=== PATIENT | male | born 1945 | race Two or more races ===

== ENCOUNTER 2016-06-20 18:53 | Emergency (ER) | payer MEDICARE, MEDICAID ==
[~2016-06-20] VITALS: Ht 149.9 cm; Wt 47.6 kg
[2016-06-20 19:01] VITALS: BP 142/68
[2016-06-20 19:31] LABS: Basophils # (auto) 0.1 uL; Basophils % (auto) 0.6 % (0.0-2.0); Eosinophils # (auto) 0.2 uL; Eosinophils % (auto) 1.9 % (0.0-7.0); Hematocrit 41.3 % (41.0-53.0); Hemoglobin 13.2 g/dL (13.5-17.5); Lymphocytes # (auto) 1.8 uL; Lymphocytes % (auto) 16.8 % (10.0-50.0); Mean Corpuscular Hemoglobin 28.9 pg (28.0-32.0); Mean Corpuscular Volume 90.6 fL (80.0-100.0); Mean Platelet Volume 9.6 fL (7.4-10.4); Monocytes % (auto) 9.1 % (0.0-12.0); Neutrophils # (auto) 7.6 uL; Neutrophils % (auto) 71.6 % (37.0-80.0); Platelet Count (auto) 391 10^3/uL (140-450); Red Cell Distribution Width 14.5 % (11.6-16.0); White Blood Cell 10.6 10^3/uL (4.4-10.8)
[2016-06-20 19:58] LABS: Albumin 3.7 g/dL (3.4-5.0); BUN/Creatinine Ratio 10.6; Calcium 8.5 mg/dL (8.5-10.1)
[2016-06-20 20:01] LABS: Bilirubin, Total 0.4 mg/dL (0.2-1.0); Total Protein 8.2 g/dL (6.4-8.2)
[2016-06-20 20:19] LABS: Potassium 2.5 mmol/L (3.5-5.1)
[2016-06-20] MEDS ORDERED: POTASSIUM CHL 20 Meq TABLET PO ONE (22:15)
== END 2016-06-21 05:32 | disposition left against medical advice (07) ==
LOC: ER 18:55
DX: R79.9 Abnormal finding of blood chemistry, unspecified (principal); E87.6 Hypokalemia; Z53.21 Procedure and treatment not carried out due to patient leaving prior to being seen by health care provider
CPT/HCPCS: 36415; 80053; 85025; 93005

== ENCOUNTER → 2016-06-27 | Outpatient (CLI) | payer MEDICARE, MEDICAID ==
[2016-06-27 16:00] LABS: Urine RBC None Seen /hpf (0 - 3)
[2016-06-27 16:08] LABS: Urine Bilirubin Negative (Negative); Urine Blood Negative /uL (Negative); Urine Color Yellow (Yellow); Urine Glucose Normal (Normal); Urine Ketone Negative (Negative); Urine Nitrite Negative (Negative); Urine Squamous Epithelial Cell FEW /hpf (<5); Urine Urobilinogen Normal (Negative)
[2016-06-27 16:26] LABS: BUN/Creatinine Ratio 8.1; Calcium 8.8 mg/dL (8.5-10.1)
[2016-06-27 16:43] LABS: Potassium 2.7 mmol/L (3.5-5.1)
== END | disposition home or self-care (01) ==
LOC: LAB 15:46
PROVIDERS: ATTEND Family Medicine
DX: E87.6 Hypokalemia (principal)
CPT/HCPCS: 36415; 80048; 81001

== ENCOUNTER → 2016-08-01 | Outpatient (CLI) | payer MEDICARE, MEDICAID ==
[2016-08-01 11:39] LABS: BUN/Creatinine Ratio 8.6; Calcium 8.4 mg/dL (8.5-10.1)
[2016-08-01 12:17] LABS: Potassium 2.7 mmol/L (3.5-5.1)
== END | disposition home or self-care (01) ==
LOC: LAB 10:40
PROVIDERS: ATTEND Family Medicine
DX: E87.6 Hypokalemia (principal); E03.9 Hypothyroidism, unspecified
CPT/HCPCS: 36415; 80048; 84443